=== PATIENT | female | born 1925 | race Caucasian/White ===

== ENCOUNTER 2016-08-08 16:07 | Emergency (ER) | payer MEDICARE ==
[~2016-08-08 16:07] MED LIST: ALENDRONATE SOD70 MG PO; AMLODIPINE BESYL5 MG PO; BISOPROLOL-HCT1 EACH PO; CALCIUM WITH V1 EAC2 PO; FISH OIL 11000 MG/CA PO; MULTIPLE VITAM1 EAC3 PO; VITAMIN D31000 UNI3 PO
[2016-08-08] MEDS ORDERED: NAMENDA5 M1 PO (16:32)
[2016-08-08] MEDS ORDERED: ZITHROMAX250 M1 PO (17:09)
[2016-08-08 17:23] LABS: URINE BILIRUBIN NEGATIVE (NEG); URINE BLOOD MODERATE (NEG); URINE GLUCOSE (UA) NEGATIVE (NEG); URINE KETONE NEGATIVE (NEG); URINE LEUKOCYTE ESTERASE POSITIVE (NEG); URINE NITRITE NEGATIVE (NEG); URINE PROTEIN MODERATE (NEG); URINE SPECIFIC GRAVITY 1.005 (1.003-1.030)
[2016-08-08 17:24] LABS: URINE APPEARANCE CLEAR; URINE COLOR YELLOW
[2016-11-21] MEDS ORDERED: PRINIVIL5 M1 PO (12:58)
[2016-11-21] MEDS ORDERED: NORVASC2.5 M1 PO (12:59)
[2016-11-21] MEDS ORDERED: STOP HOME MEDICATION (13:00)
== END 2016-08-08 18:03 ==
LOC: EDMED 16:07
PROVIDERS: Emergency Medicine
DX: J18.1 Lobar pneumonia, unspecified organism (principal); I10 Essential (primary) hypertension; Z79.82 Long term (current) use of aspirin; Z79.899 Other long term (current) drug therapy